=== PATIENT | male | born 1970 | race Caucasian/White ===

== ENCOUNTER 2016-09-29 11:45 | Emergency (ER) ==
[2016-09-29 11:52] VITALS: BP 183/113; TEMP 96.8; BMI 32.1
[2016-09-29] MEDS ORDERED: ZOFRAN 4 MG/2 ML IVP STA (11:56)
[2016-09-29] MEDS ORDERED: TORADOL IVP STA (11:56)
--- NOTE | 2016-09-29 11:59 | ED.PDOC ---
General ED Provider: Dr. DARINEL HERNANDEZ Chief Complaint: Kidney Stone Stated Complaint: i think im passing another kidney stone. pain to left flank radiating around to abdomen Time Seen by Physician: 11:59 Mode of Arrival: Walk-In Information Source: Family Exam Limitations: No limitations [facility] Nursing and Triage Documentation Reviewed and Agree: Yes Musculoskeletal Complaint Exam - Back Pain Complaint/Exam Mechanism of Injury: Reports: No known trauma Onset/Duration: just prior to arrival Symptoms Are: Still present Timing: Constant Initial Severity: Moderate Current Severity: Severe Location: Reports: Radiating (to the left groin ) Character: Reports: Throbbing Aggravating: Reports: None Alleviating: Reports: None Associated Signs and Symptoms: Reports: Abdominal pain, Flank pain. Denies: Swelling, Redness, Bruising, Fever, Weakness, Numbness, Tingling, Bladder incontinence, Bowel incontinence, Weight loss, Pain with weight bearing TAD Risk Factors: Reports: None AAA Risk Factors: Reports: None Cauda Equina Risk Factors: Reports: None Epidural Abcess Risk Factors: Reports: None Related Surgical History: Reports: None Focal Tenderness: Yes (mild on the left flank ) Paraspinal Muscle Tenderness: No Paraspinal Muscle Spasm: No Scoliosis: No Lordosis: No Kyphosis: No SLR Test: Right Negative, Left Negative Hip Motion Testing Pain: Right Negative, Left Negative Focal Weakness: Present: None Focal Sensory Loss: Present: None Gait: Present: Normal Back Picture: 1 - Tendernes 2 - tenderness Differential Diagnoses: Renal Colic Review of Systems - Review Of Systems Constitutional: Reports: No symptoms Ears, Nose, Mouth, Throat: Reports: No symptoms Respiratory: Reports: No symptoms Cardiac: Reports: No symptoms GI: Reports: Abdominal pain (on the left ), Nausea, Poor appetite Musculoskeletal: Reports: Back pain Neurological: Reports: Anxiety All Other Systems: Reviewed and Negative Past Medical History - Past Medical History Previously Healthy: Yes Endocrine: Reports: None Cardiovascular: Reports: None Respiratory: Reports: None Hematological: Reports: None Gastrointestinal: Reports: None Genitourinary: Reports: Kidney stones Neuro/Psych: Reports: None Musculoskeletal: Reports: Back Pain, Joint Pain Cancer: Reports: None - Surgical History General Surgical History: Reports: None - Family History Family History: Reports: None - Social History Smoking Status: Current every day smoker Hx Substance Use: Yes Alcohol Screening: None Physical Exam - Physical Exam Appearance: Ill-appearing, Obese Ill-appearing: Moderate Pain Distress: Severe Neck: Supple Respiratory: Airway patent, Breath sounds clear, Breath sounds equal, Respirations nonlabored Cardiovascular: RRR, Pulses normal, No rub, No murmur GI/: Soft, Nontender, No masses, Bowel sounds normal, No Organomegaly Musculoskeletal: Normal strength, ROM intact, No edema, No calf tenderness Skin: Warm, Dry, Normal color Neurological: Sensation intact, Motor intact, Reflexes intact, Cranial nerves intact, Alert, Oriented Psychiatric: Anxious Interpretation - Radiology Interpretation Radiology Interpretation By: Radiologist Radiology Results: Positive (3 mm stone with mild Hydronephrosis.) Exam Interpreted: CT Scan (Abdomen and Pelvis ) Critical Care Note - Critical Care Note Total Time (mins): 0 Course - Course Hematology/Chemistry: 09/29/16 12:15 09/29/16 12:15 Orders, Labs, Meds: Lab Review 09/29/16 12:15 WBC 10.48 H RBC 4.96 Hgb 15.9 Hct 46.1 MCV 92.9 MCH 32.1 H MCHC 34.5 RDW Coeff of [place] 12.3 Plt Count 268 Immature Gran % (Auto) 0.3 Neut % (Auto) 67.5 Lymph % (Auto) 20.5 [place] % (Auto) 6.9 Eos % (Auto) 3.9 Baso % (Auto) 0.9 Immature Gran # (Auto) 0.0 Neut # 7.1 H Lymph # 2.2 [place] # 0.7 Eos # 0.4 Baso # 0.1 Sodium 138 Potassium 4.3 Chloride 101 Carbon Dioxide 26 Anion Gap 15.3 BUN 16 Creatinine 0.98 Estimated GFR (MDRD) 82.00 BUN/Creatinine Ratio 16.32 Glucose 217 H Calcium 9.3 Total Bilirubin 0.91 AST 19 ALT 35 Alkaline Phosphatase 99 Total Protein 7.2 Albumin 3.9 Globulin 3.3 Albumin/Globulin Ratio 1.18 Amylase 25 Lipase 14 Orders Category Date Time Status ED IV/MEDIPORT/POWERPORT .ONCE EMERGENCY 09/29/16 11:56 Active AMYLASE Stat LAB 09/29/16 12:15 Completed CBC W/ AUTO DIFF Stat LAB 09/29/16 12:15 Completed COMPREHENSIVE METABOLIC PANEL Stat LAB 09/29/16 12:15 Completed LIPASE Stat LAB 09/29/16 12:15 Completed 0.9 % Sodium Chloride [Saline Flush] MEDS 09/29/16 11:57 Discontinued 1 syr IVF PRN PRN Ketorolac Tromethamine [Toradol] MEDS 09/29/16 11:56 Discontinued 30 mg IVP ONCE STA Ondansetron HCl/Pf [Zofran 4 mg/2 ml] MEDS 09/29/16 11:56 Discontinued 4 mg IVP ONCE STA CT ABD/PEL WO RENAL STONE PROT Stat RADS 09/29/16 11:57 Completed Medications Discontinued Medications Generic Name Dose Route Start Last Admin Trade Name Freq PRN Reason Stop Dose Admin Ketorolac Tromethamine 30 mg 09/29/16 11:56 09/29/16 12:25 Toradol IVP 09/29/16 11:57 30 mg ONCE STA Administration Ondansetron HCl 4 mg 09/29/16 11:56 09/29/16 12:25 Zofran 4 Mg/2 Ml IVP 09/29/16 11:57 4 mg ONCE STA Administration Sodium Chloride 1 syr 09/29/16 11:57 Saline Flush IVF PRN PRN To flush IV Vital Signs: Temp Pulse Resp BP Pulse Ox 09/29/16 11:45 96.8 F L 89 22 183/113 H 97 Departure - Departure Time of Disposition: 12:53 Disposition: HOME SELF-CARE Discharge Problem: Kidney stone Instructions: Renal Colic (ED) Condition: Fair Pt referred to PMD for follow-up: Yes Additional Instructions: Strain urine Follow up with PCP in 3 days take medications needed for pain. Prescriptions: Hydrocodone/Acetaminophen [[place] 5-325 Tablet] 1 tab PO Q6HR PRN #20 tablet PRN Reason: PAIN Ibuprofen [Motrin] 600 mg PO Q6H PRN #30 tablet PRN Reason: Analgesia Tamsulosin HCl [Flomax] 0.4 mg PO DAILY #10 cap.er.24h Allergies/Adverse Reactions: Allergies codeine Adverse Reaction (Verified 09/29/16 11:49) Home Medications: Ambulatory Orders Hydrocodone/Acetaminophen [Lortab 7.5-500 Tablet] 7.5 tab PO TID 11/18/13 Gabapentin [Neurontin] 600 mg PO TID 12/05/15 Hydrocodone/Acetaminophen [[place] 5-325 Tablet] 1 tab PO Q6HR PRN #20 tablet Ibuprofen [Motrin] 600 mg PO Q6H PRN #30 tablet 09/29/16 Tamsulosin HCl [Flomax] 0.4 mg PO DAILY #10 cap.er.24h 09/29/16 Disposition Discussed With: Patient, Family
[2016-09-29 12:25] LABS: BASOPHILS # (AUTO) 0.1 K/uL (0-0.2); BASOPHILS % (AUTO) 0.9 % (0.0-3.0); EOSINOPHILS # (AUTO) 0.4 K/ul (0.0-0.7); EOSINOPHILS % (AUTO) 3.9 % (0.0-7.0); HEMATOCRIT 46.1 % (42.0-52.0); HEMOGLOBIN 15.9 g/dl (14.0-18.0); IMMATURE GRANULOCYTE % (AUTO) 0.3 % (0.0-5.0); LYMPHOCYTES # (AUTO) 2.2 K/uL (0.60-3.4); LYMPHOCYTES % (AUTO) 20.5 (10.0-50.0); MEAN CORPUSCULAR HEMOGLOBIN 32.1 pg (27.0-31.0); MEAN CORPUSCULAR HGB CONC 34.5 (31.8-35.4); MEAN CORPUSCULAR VOLUME 92.9 fl (80.0-94.0); MONOCYTES # (AUTO) 0.7 K/uL (0.4-2.0); MONOCYTES % (AUTO) 6.9 (0-10); NEUTROPHILS # (AUTO) 7.1 K/ul (2.0-6.9); NEUTROPHILS % (AUTO) 67.5; PLATELET COUNT 268 10^3/uL (140-440); RED BLOOD COUNT 4.96 10^6/ul (4.70-6.10); WHITE BLOOD COUNT 10.48 K/ul (4.2-10.2)
--- NOTE | 2016-09-29 12:44 | CT ---
EXAM: CT of the abdomen pelvis without contrast History: flank pain. Comparison: CT abdomen pelvis 12/05/2015 Technique: Multiplanar CT images through the abdomen pelvis were obtained without the administratio n of IV contrast Findings: Lung bases are free of consolidation. No acute osseous abnormalities. 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 Fatty infiltration of the liver. No discrete gallstones identified by CT. No focal splenic lesions. Stable tiny hepatic cyst. Adrenal glands are unremarkable. No peripancreatic inflammation. Righ t nephrolithiasis with largest stone measuring 3 mm. Left nephrolithiasis with largest stone measur ing 5 mm. 3 mm proximal left ureteral calculus causing mild left hydronephrosis with left perinephr ic stranding. No bladder wall thickening. Prostate is not enlarged. No perirectal inflammation. No free air. No ascites. Normal appendix. Impression: 1. 3 mm proximal left ureteral calculus causing mild left hydronephrosis with left perinephric stra nding. 2. Bilateral nephrolithiasis. 3. Enlarged fatty liver.
[2016-09-29 12:47] LABS: ALBUMIN 3.9 g/dL (3.4-5.0); ALBUMIN/GLOBULIN RATIO 1.18; ANION GAP 15.3; BILIRUBIN,TOTAL 0.91 mg/dL (0.00-1.20); BUN/CREATININE RATIO 16.32; CALCIUM 9.3 mg/dL (8.2-10.2); CREATININE 0.98 mg/dL (0.60-1.10); POTASSIUM 4.3 mmol/L (3.5-5.1); TOTAL PROTEIN 7.2 g/dL (6.4-8.2)
== END 2016-09-29 13:33 | disposition home or self-care (01) ==
LOC: ED 11:45
DX: N20.0 Calculus of kidney (principal); Z87.442 Personal history of urinary calculi; F17.210 Nicotine dependence, cigarettes, uncomplicated
CPT/HCPCS: 36415; 74176; 80053; 82150; 83690; 85025; 96374; 96375; 99283